=== PATIENT | female | born 1945 | race Two or more races ===

== ENCOUNTER 2018-11-19 22:42 | Emergency (ER) | payer MEDICARE, MEDICAID ==
[~2018-11-19] VITALS: Ht 162.6 cm; Wt 73.0 kg
[2018-11-19] MEDS ORDERED: METHYLPREDNISOLONE SOD SUCC 125 MG/2 ML VIAL IV STA (23:05)
[2018-11-19] MEDS ORDERED: ALBUTEROL (0.083%) 2.5MG/3ML NEB HHN STA (23:05)
[2018-11-19] MEDS ORDERED: IPRATROPIUM BROMIDE (0.02%) 0.5MG/2.5ML NEB HHN STA (23:05)
[2018-11-19] MEDS ORDERED: MAGNESIUM 2 G PREMIX 50 ML IV ONE (23:15)
[2018-11-20 00:10] LABS: HEMATOCRIT. 33.2 % (36.0-48.0); HEMOGLOBIN. 11.1 g/dL (12.0-16.0); MEAN CORPUSCULAR HEMOGLOBIN 29.4 pg (28.0-32.0); MEAN CORPUSCULAR VOLUME 87.6 fL (81.0-99.0); PLATELET 212 x1000/uL (130-400); RED BLOOD CELL COUNT 3.79 mill/uL (4.2-5.4); RED CELL DISTRIBUTION WIDTH 14.9 % (11.6-14.6)
[2018-11-20 00:17] LABS: CHLORIDE 103 mEq/L (98-107)
[2018-11-20 01:58] LABS: PLATELET ESTIMATE NORMAL
[2018-11-20 03:40] VITALS: BP 147/71
== END 2018-11-20 03:40 | disposition home or self-care (01) ==
LOC: ER 22:42
DX: R06.2 Wheezing (principal); R06.02 Shortness of breath; E11.9 Type 2 diabetes mellitus without complications; I11.9 Hypertensive heart disease without heart failure
CPT/HCPCS: 36415; 71045; 80053; 83880; 84484; 85025; 93005; 94640; 96365; 96375; 99284; J2930; J3475; J7611